=== PATIENT | female | born 1980 | race African-American/Black ===

== ENCOUNTER 2017-03-06 16:23 | Emergency (ER) | payer SELFPAY ==
[~2017-03-06] VITALS: Ht 165.1 cm; Wt 104.4 kg
[2017-03-06 17:10] LABS: HEMATOCRIT 40.6 % (36.0-46.0); MCH 30.7 PG (29.0-34.0); MCV 87.7 FL (83-99); MEAN PLAT.VOLUME 10.2 uM^3 (9.5-12.4); PLATELET COUNT 276 K/uL (156-360); RBC DIS.WIDTH-CV 11.9 % (11.8-14.6); RBC DIS.WIDTH-SD 38.3 % (39-53); RED BLOOD COUNT 4.63 M/uL (3.80-5.20)
[2017-03-06 17:18] LABS: CHLORIDE 104 mEq/L (99-109); POTASSIUM 3.5 mEq/L (3.7-5.4); SODIUM 140 mEq/L (136-147)
[2017-03-06 17:19] LABS: GLUCOSE 99 mg/dL (70-99)
[2017-03-06 17:20] LABS: ADD MIUA? YES; BILIRUBIN NEGATIVE; BLOOD NEGATIVE; COLOR YELLOW ((YELLOW)); GLUCOSE (STRIP) NEGATIVE; KETONES NEGATIVE; LEUKOCYTES SMALL; NITRITE NEGATIVE; PROTEIN (STRIP) 30; SPECIFIC GRAVITY 1.019 (1.000-1.030); UROBILINOGEN 0.2 MG/DL (0.2-1.0)
[2017-03-06 17:21] LABS: ANION GAP 9 MEQ/L (2-14)
[2017-03-06 17:24] LABS: UREA NITROGEN (BUN) 11 mg/dL (9-23)
[2017-03-06 17:33] LABS: BACTERIA RARE /HPF; EPITHELIAL CELLS 1+ /HPF; MUCUS TRACE /LPF; RED BLOOD CELLS 0-5 /HPF (0-5); UCUL ADDED? NO; WHITE BLOOD CELLS 0-5 /HPF (0-5)
[2017-03-06 17:33] LABS: QUANTITATIVE HCG < 4.0 MIU/ML
[2017-03-06 17:34] LABS: GFR ESTIMATE (CALCULATED) > 59 mL/min/
[2017-03-06 19:27] VITALS: BP 130/72
== END 2017-03-06 19:31 | disposition home or self-care (01) ==
LOC: EME 16:23
DX: N92.1 Excessive and frequent menstruation with irregular cycle (principal)
CPT/HCPCS: 76856; 80048; 81003; 84702; 85027; 86900; 86901; 99281; 99285